=== PATIENT | female | born 1950 | race Hispanic/Latino ===

== ENCOUNTER 2017-11-21 16:51 | Inpatient (IN) | payer MEDICARE ==
--- NOTE | 2017-11-21 17:15 | ED PDOC ---
Arrival/HPI - General Chief Complaint: Weakness/Neurological Deficit Time Seen by Provider: 11/21/17 16:54 Historian: Patient, Other (PMD) - Critical Care Critical Care Minutes: 30 minutes Narrative Critical Care (Text): 11/21/17 20:48 severe anemia - History of Present Illness Narrative History of Present Illness (Text): 11/21/17 17:15 A 67 year old female, whose past medical history includes PUD with anemia requiring transfusion, sent into the emergency department by PMD for generalized fatigue and pale appearance. Patient reports while walking up the stairs to PMDs office she felt dizzy and weak. Patient notes lower extremity swelling for the past few days but denies any fever, chills, nausea, vomiting, abdominal pain, chest pain, shortness of breath, cough or any other complaints. PMD: Dr. Perla Time/Duration: Prior to Arrival Symptom Course: Unchanged Context: Other Past Medical History - Provider Review Nursing Documentation Reviewed: Yes - Past Medical History Past Medical History: Unable to Obtain - Cardiac Hx Cardiac Disorders: No - Pulmonary Hx Respiratory Disorders: No - Neurological Hx Neurological Disorder: No - HEENT Hx HEENT Disorder: No - Renal Hx Renal Disorder: No - Endocrine/Metabolic Hx Hypothyroidism: Yes - Hematological/Oncological Hx Blood Disorders: Yes (ADM TODAY 12/14/14) Hx Anemia: Yes (HEMATEMESIS 12/14/14) - Integumentary Hx Dermatological Disorder: No - Musculoskeletal/Rheumatological Hx Musculoskeletal Disorders: Yes Hx Back Pain: Yes - Gastrointestinal Hx Gastrointestinal Disorders: Yes Hx Gastrointestinal Ulcer: Yes Other/Comment: HEMATEMESIS 2014 - Genitourinary/Gynecological Hx Genitourinary Disorders: No - Psychiatric Hx Psychophysiologic Disorder: Yes Hx Anxiety: Yes Hx Depression: Yes Hx Substance Use: No Other/Comment: PT STATES "I WAS HURT" NOT ELOBORATING ON THIS - Surgical History Hx Appendectomy: Yes Other/Comment: 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 - Anesthesia Hx Anesthesia: Yes - Suicidal Assessment Feels Threatened In Home Enviroment: No Family/Social History - Physician Review Nursing Documentation Reviewed: Yes Family/Social History: No Known Family HX Smoking Status: Never Smoked Hx Alcohol Use: No Hx Substance Use: No Hx Substance Use Treatment: No Allergies/Home Meds Allergies/Adverse Reactions: Allergies Penicillins Allergy (Verified 11/21/17 17:14) RASH shellfish derived Allergy (Verified 11/21/17 17:14) RASH Home Medications: Home Meds Medication Instructions Recorded Confirmed Levothyroxine Sodium [Synthroid] 0 mg PO DAILY 12/14/14 12/14/14 Vitamin B Complex & Vitamin C 1 tab PO DAILY 12/14/14 12/14/14 [Strovite] busPIRone [Buspar] 0 mg PO DAILY 12/14/14 12/14/14 Review of Systems - Physician Review All systems were reviewed & negative as marked: Yes - Review of Systems Constitutional: Fatigue. absent: Fevers, Night Sweats Respiratory: absent: SOB, Cough Cardiovascular: absent: Chest Pain Gastrointestinal: absent: Abdominal Pain, Constipation, Diarrhea, Nausea, Vomiting, Hematochezia, Hematemesis Genitourinary Female: absent: Hematuria Skin: Other (pale) Neurological: Dizziness Physical Exam Vital Signs Reviewed: Yes Vital Signs Temp Pulse Resp BP Pulse Ox 11/21/17 17:07 98.0 F 94 H 20 121/62 100 Temperature: Afebrile Blood Pressure: Normal Pulse: Tachycardic Respiratory Rate: Normal Appearance: Positive for: Non-Toxic, Comfortable, Other (Pale appearing) Pain Distress: None Mental Status: Positive for: Alert and Oriented X 3 - Systems Exam Head: Present: Atraumatic, Normocephalic Pupils: Present: PERRL Extroacular Muscles: Present: EOMI Conjunctiva: Present: Normal Mouth: Present: Moist Mucous Membranes Neck: Present: Normal Range of Motion Respiratory/Chest: Present: Clear to Auscultation, Good Air Exchange. No: Respiratory Distress, Accessory Muscle Use Cardiovascular: Present: Normal S1, S2, Tachycardic. No: Murmurs Abdomen: Present: Normal Bowel Sounds. No: Tenderness, Distention, Peritoneal Signs Back: Present: Normal Inspection Upper Extremity: Present: Normal Inspection, Normal ROM, NORMAL PULSES. No: Cyanosis, Edema Lower Extremity: Present: NORMAL PULSES (DP intact), Normal ROM, Swelling (Left lower extremity swelling). No: CALF TENDERNESS Neurological: Present: GCS=15, CN II-XII Intact, Speech Normal Skin: Present: Warm, Dry, Pale. No: Rashes Psychiatric: Present: Alert, Oriented x 3, Normal Insight, Normal Concentration Medical Decision Making ED Course and Treatment: 11/21/17 17:15 Impression: A 67 year old female sent in for fatigue, pale appearance and bilateral lower extremity swelling. Plan: -- Duplex lower extremity ultrasound -- Chest xray -- EKG -- Labs -- Urine culture and Urinalysis -- IV fluids -- Reassess and disposition Progress Notes: 11/21/17 17:34 EKG shows NSR at 991bpm with old t wave inversions in V4-v6, but new t wave inversions in II,III, avf from prior ekg. Denies chest pain. 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 11/21/17 20:47 Labs show hypokalemia. Replacement ordered. Patient anemic to 3. Type and cross ordered for 2 units rbcs. Accepted to ICU 11/21/17 21:20 - Lab Interpretations Lab Results: 11/21/17 19:53 11/21/17 17:40 Lab Results 11/21/17 19:53: WBC 7.1, RBC 2.05 L, Hgb 3.4 L*, Hct 12.3 L*, MCV 60.0 L, MCH 16.6 L, MCHC 27.6 L, RDW 18.7 H, Plt Count 472 H, MPV 7.8, Gran % 83.5 H, Lymph % (Auto) 13.9 L, Burnett % (Auto) 2.4, Eos % (Auto) 0.1 L, Baso % (Auto) 0.1, Gran # 5.96, Lymph # 1.0 L, Burnett # 0.2, Eos # 0.0, Baso # 0.01 11/21/17 17:40: TSH 3rd Generation 0.16 L 11/21/17 17:40: Blood Type A POSITIVE, Antibody Screen Negative, Crossmatch See Detail, BBK History Checked Patient has bt 11/21/17 17:40: Sodium 127 L, Potassium 2.9 L*, Chloride 93 L, Carbon Dioxide 23 , Anion Gap 13, BUN 15, Creatinine 0.7, Est GFR ( Amer) > 60, Est GFR ( Non-Af Amer) > 60, Random Glucose 100, Calcium 8.5, Total Bilirubin 0.9, AST 44 H, ALT 24, Alkaline Phosphatase 115, Lactate Dehydrogenase 562, Total Creatine Kinase 168, Troponin I < 0.01, NT-Pro-B Natriuret Pep 2550 H, Total Protein 6.5 , Albumin 3.7, Globulin 2.8, Albumin/Globulin Ratio 1.3, Lipase 71 11/21/17 17:40: PT 15.3 H, INR 1.33 H, APTT 29.6 I have reviewed the lab results: Yes - RAD Interpretation Radiology Orders: 11/21/17 17:19 CHEST PORTABLE [RAD] Stat 11/21/17 17:20 DUPLEX LOWER EXTRM VEIN LEFT [US] Stat - Medication Orders Current Medication Orders: Discontinued Medications Sodium Chloride (Sodium Chloride 0.9%) 1,000 mls @ 999 mls/hr IV .Q1H1M STA Stop: 11/21/17 18:21 Last Admin: 11/21/17 17:49 Dose: 999 mls/hr eMAR Start Stop Document 11/21/17 17:49 RD (Rec: 11/21/17 17:49 RD [facility] [id number]) Intravenous Solution Start Date 11/21/17 Start Time 17:49 End Date 11/21/17 End time 18:49 Total Infusion Time 60 Potassium Chloride (Potassium Chloride 10 Meq/100 Ml) 10 meq in 100 mls @ 50 mls/hr IVPB ONCE ONE Stop: 11/21/17 20:18 Last Admin: 11/21/17 18:36 Dose: 50 mls/hr eMAR Start Stop Document 11/21/17 18:36 [facility] (Rec: 11/21/17 18:37 [facility] [id number]) Intravenous Solution Start Date 11/21/17 Start Time 18:36 End Date 11/21/17 End time 20:40 Total Infusion Time 124 Potassium Chloride (Potassium Chloride 10 Meq/100 Ml) 10 meq in 100 mls @ 50 mls/hr IVPB ONCE ONE Stop: 11/21/17 20:19 Last Admin: 11/21/17 19:41 Dose: 50 mls/hr eMAR Start Stop Document 11/21/17 19:41 JOL (Rec: 11/21/17 19:41 JOL [id number]) Intravenous Solution Start Date 11/21/17 Start Time 19:41 End Date 11/21/17 End time 20:41 Total Infusion Time 60 Potassium Chloride (K-Dur 20 Meq Er Tab) 40 meq PO STAT STA Stop: 11/21/17 18:20 Last Admin: 11/21/17 18:37 Dose: 40 meq - Scribe Statement The provider has reviewed the documentation as recorded by the Romeoibe Izabella Blackburn Provider Romeoibe Attestation: All medical record entries made by the Scribe were at my direction and personally dictated by me. I have reviewed the chart and agree that the record accurately reflects my personal performance of the history, physical exam, medical decision making, and the department course for this patient. I have also personally directed, reviewed, and agree with the discharge instructions and disposition. Disposition/Present on Arrival - Present on Arrival Any Indicators Present on Arrival: No History of DVT/PE: No History of Uncontrolled Diabetes: No Urinary Catheter: No History of Decub. Ulcer: No History Surgical Site Infection Following: None - Disposition Have Diagnosis and Disposition been Completed?: Yes Diagnosis: Hyponatremia, Hypokalemia, Anemia Disposition: HOSPITALIZED Disposition Time: 20:48 Patient Plan: Admission, ICU Patient Problems: Current Active Problems Problem Status Onset Anemia Acute Hyponatremia Acute Hypokalemia Acute Condition: CRITICAL Referrals: Timothy Perla, [Primary Care Provider] - Follow up with primary Forms: [employer] (Kiswahili)
[2017-11-21] MEDS ORDERED: Sodium Chloride 0.9% 1,000 ML IV STA (17:21)
[2017-11-21 18:17] LABS: ALB/GLOB RATIO 1.3 (1.1-1.8); ALBUMIN 3.7 g/dL (3.0-4.8); ALT/SGPT 24 U/L (7-56); AST/SGOT 44 U/L (14-36); B-TYPE NATRIURETIC PEPTIDE 2550 pg/mL (0-450); BLOOD UREA NITROGEN 15 mg/dL (7-21); CALCIUM 8.5 mg/dL (8.4-10.5); GFR AFRICAN-AMERICAN > 60; GFR NON-AFRICAN AMERICAN > 60; LIPASE 71 U/L (23-300); TROPONIN I < 0.01 ng/mL
[2017-11-21] MEDS ORDERED: Potassium Chloride 20 mEq ER Tab PO STA (18:19)
[2017-11-21 18:25] LABS: INR 1.33 (0.93-1.08); PARTIAL THROMBOPLASTIN TIME 29.6 Seconds (25.1-36.5); PROTHROMBIN TIME 15.3 SECONDS (9.4-12.5)
[2017-11-21 20:58] LABS: BASO # 0.01 K/mm3 (0.0-2.0); BASO % 0.1 % (0.0-3.0); EOS % 0.1 % (1.5-5.0); GRAN # 5.96 (1.4-6.5); GRAN % 83.5 % (50.0-68.0); LYMPH % 13.9 % (22.0-35.0); MEAN CORPUSCULAR HEMOGLOBIN 16.6 pg (25.0-35.0); MEAN CORPUSCULAR HGB CONC 27.6 g/dl (31.0-37.0); MEAN PLATELET VOLUME 7.8 fl (7.0-11.0); MONO # 0.2 (0.1-0.6); MONO % 2.4 % (1.0-6.0); RBC 2.05 10^6/uL (3.5-6.1); RED CELL DISTRIBUTION WIDTH 18.7 % (11.5-14.5); WHITE BLOOD COUNT 7.1 10^3/ul (4.5-11.0)
[2017-11-21 21:12] LABS: HEMOGLOBIN 3.4 g/dL (12.0-16.0)
--- NOTE | 2017-11-21 23:38 | US ---
PROCEDURE: Left lower extremity venous US HISTORY: Leg pain and swelling. Evaluate for DVT. PHYSICIAN(S): Eduardo Domingo MD. TECHNIQUE: Duplex sonography and color-flow Doppler with graded compression were used to evaluate the deep venous system of the left lower extremity. FINDINGS: The visualized deep venous system of the left lower extremity is sonographically normal and compressible. Normal wave forms and augmentation are seen. There is no sonographic evidence for deep venous thrombosis in the visualized segments of the left lower extremity. IMPRESSION: 1. No sonographic evidence for deep venous thrombosis in the visualized segments of the left lower extremity.
--- NOTE | 2017-11-22 00:22 | CP.PCM.CON ---
<KrishnaIsaac - Last Filed: 11/22/17 01:22> History of Present Illness - History of Present Illness History of Present Illness: Isaac Keller D.O. PGY-2, Critical Care Consultation Note CC: weakness and dizziness for multiple days 67 year old female with a PMH of previous episode of GI bleed, with LA grade C erosive esophagitis and esophageal ulcers requiring transfusions, who presented to her PMD's office for complaints of weakness and dizziness and was sent here from the office. Patient states that for multiple days she has been feeling weak and at times she gets dizzy, particularly when changing position. Patient denies any N/V/D/C, any melena, tenesmus, hematochezia, hematemesis, or any other complaints. Patient at times is a unreliable historian and states that she some type of surgery which prevents her from ever getting another GI bleed again. PMD: Dr. Perla PMH: as above PSH: reviewed SH: reviewed FH: reviewed Meds: reviewed Allergies: NKA Review of Systems - Constitutional Constitutional: Fatigue, Lethargy - EENT Eyes: absent: Blind Spots, Blurred Vision Ears: absent: Decreased Hearing, Ear Discharge Nose/Mouth/Throat: absent: Epistaxis, Nasal Congestion - Cardiovascular Cardiovascular: absent: Chest Pain, Diaphoresis - Respiratory Respiratory: absent: Cough, Dyspnea - Gastrointestinal Gastrointestinal: absent: Abdominal Pain, Nausea, Vomiting - Genitourinary Genitourinary: absent: Dysuria, Hematuria - Musculoskeletal Musculoskeletal: absent: Stiffness, Tingling - Integumentary Integumentary: absent: Pruritus, Rash - Neurological Neurological: Dizziness. absent: Tingling, Tremor Past Patient History - Past Social History Smoking Status: Never Smoked - CARDIAC Hx Cardiac Disorders: No - PULMONARY Hx Respiratory Disorders: No - NEUROLOGICAL Hx Neurological Disorder: No - HEENT Hx HEENT Problems: No - RENAL Hx Chronic Kidney Disease: No - ENDOCRINE/METABOLIC Hx Hypothyroidism: Yes - HEMATOLOGICAL/ONCOLOGICAL Hx Blood Disorders: Yes (ADM TODAY 12/14/14) Hx Anemia: Yes (HEMATEMESIS 12/14/14) - INTEGUMENTARY Hx Dermatological Problems: No - MUSCULOSKELETAL/RHEUMATOLOGICAL Hx Musculoskeletal Disorders: Yes Hx Back Pain: Yes - GASTROINTESTINAL Hx Gastrointestinal Disorders: Yes Other/Comment: HEMATEMESIS 2014 - GENITOURINARY/GYNECOLOGICAL Hx Genitourinary Disorders: No - PSYCHIATRIC Hx Psychophysiologic Disorder: Yes Hx Anxiety: Yes Hx Depression: Yes Hx Substance Use: No Other/Comment: PT STATES "I WAS HURT" NOT ELOBORATING ON THIS - SURGICAL HISTORY Hx Appendectomy: Yes Other/Comment: 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 - ANESTHESIA Hx Anesthesia: Yes Meds Allergies/Adverse Reactions: Allergies Allergy/AdvReac Type Severity Reaction Status Date / Time Penicillins Allergy RASH Verified 11/21/17 17:14 shellfish derived Allergy RASH Verified 11/21/17 17:14 MYCINS Allergy RASH Uncoded 11/22/17 08:51 [employer] AdvReac DIARRHEA Uncoded 11/22/17 08:51 - Medications Medications: Current Medications Pantoprazole Sodium (Protonix 40mg Ivpb) 40 mg in 100 mls @ 20 mls/hr IVPB .Q5H DAWOOD Physical Exam - Constitutional Appears: Cachectic, Chronically Ill - Head Exam Head Exam: ATRAUMATIC, NORMOCEPHALIC - Eye Exam Eye Exam: EOMI, PERRL - ENT Exam ENT Exam: Mucous Membranes Dry, Mucous Membranes Moist - Neck Exam Neck exam: Positive for: Normal Inspection - Respiratory Exam Respiratory Exam: Clear to Auscultation Bilateral. absent: Rhonchi, Wheezes - Cardiovascular Exam Cardiovascular Exam: RRR, +S1, +S2. absent: Gallop, Rubs - GI/Abdominal Exam GI & Abdominal Exam: Normal Bowel Sounds, Soft. absent: Distended, Tenderness - Extremities Exam Extremities exam: Negative for: calf tenderness, pedal edema - Neurological Exam Neurological exam: Alert, Oriented x3 - Psychiatric Exam Psychiatric exam: Normal Affect, Normal Mood - Skin Skin Exam: Dry, Warm Results - Vital Signs Recent Vital Signs: Last Vital Signs Temp 97.8 F 11/21/17 23:04 Pulse 101 H 11/21/17 23:14 Resp 15 11/21/17 23:04 BP 115/91 H 11/21/17 23:04 Pulse Ox 100 11/21/17 19:00 - Labs Result Diagrams: 11/21/17 19:53 11/21/17 17:40 Assessment & Plan - Assessment and Plan (Free Text) Assessment: 67 year old female with a PMH of previous episode of GI bleed, with LA grade C erosive esophagitis and esophageal ulcers requiring transfusions, who presented to her PMD's office for complaints of weakness and dizziness and was sent here from the office and was found to have severe anemia with a Hgb of 3.4 Plan: Neurologic AAOx4, nonfocal, no deficits, will monitor Cardiovascular BNP elevated, cardio consulted, nonspecific ST-T wave changes on EKG, asymptomatic, hemodynamically stable, maintain MAP >65 Pulmonologic PRN O2 2L NC, maintain O2Sat > 92%, no acute issues at this time GI GI consulted, likely source of bleeding given history, chronic given patient currently stable despite very low Hgb, discussed with GI team, on PPI gtt, NPO Nephro/Electrolytes Hypokalemia and hyponatremia, did receive a total of 60mEqs of K+ in the ER, repeat after gets 3U of PRBCs ID No acute signs of infection, afebrile, no leukocytosis, continue to monitor Heme/Onc GI likely source of severe anemia, will given 3U PRBCs and recheck CBC, hemodynamically stable DVT ppx: SCDs Patient was seen and examined and case was discussed at length with attending physician. - Date & Time Date: 11/22/17 Time: 00:20 <Isaac Anderson MD - Last Filed: 11/23/17 10:47> Meds - Medications Medications: Current Medications Sodium Chloride (Sodium Chloride 0.9%) 1,000 mls @ 60 mls/hr IV .[id number] [facility] Last Admin: 11/23/17 06:52 Dose: 60 mls/hr Potassium Chloride (Potassium Chloride 10 Meq/100 Ml) 10 meq in 100 mls @ 50 mls/hr IVPB Q2H [facility] Stop: 11/23/17 12:44 Last Admin: 11/23/17 10:04 Dose: 50 mls/hr Pantoprazole Sodium (Protonix Ec Tab) 40 mg PO 0600,1600 [facility] Last Admin: 11/23/17 06:38 Dose: 40 mg Sucralfate (Carafate Oral Susp) 1 gm PO 0600,1600 [facility] Last Admin: 11/23/17 06:51 Dose: 1 gm Results - Vital Signs Recent Vital Signs: Last Vital Signs Temp 98.4 F 11/22/17 17:45 Pulse 79 11/23/17 00:40 Resp 22 11/23/17 00:40 BP 98/60 L 11/23/17 00:00 Pulse Ox 97 11/23/17 00:40 - Labs Result Diagrams: 11/23/17 07:10 11/23/17 07:10 Labs: Laboratory Results - last 24 hr 11/22/17 11/22/17 11/22/17 13:13 19:35 19:35 WBC 8.1 RBC 4.57 Hgb 11.8 L D Hct 34.8 L MCV 76.1 L MCH 25.8 MCHC 33.9 RDW 20.3 H Plt Count 282 MPV 8.9 Sodium 133 Potassium 3.0 L Chloride 98 Carbon Dioxide 22 Anion Gap 16 BUN 12 Creatinine 0.6 L Est GFR ( Amer) > 60 Est GFR (Non-Af Amer) > 60 Random Glucose 83 Calcium 7.6 L Phosphorus 1.9 L Magnesium 1.6 L Total Bilirubin AST ALT Alkaline Phosphatase Total Protein Albumin Globulin Albumin/Globulin Ratio Urine Color Yellow Urine Appearance Clear Urine pH 7.0 Ur Specific [place] 1.010 Urine Protein Negative Urine Glucose (UA) Negative Urine Ketones 15 H Urine Blood Small H Urine Nitrate Negative Urine Bilirubin Negative Urine Urobilinogen 1.0 H Ur Leukocyte Esterase Trace H Urine RBC 2 - 5 Urine WBC 1 - 3 Ur Epithelial Cells 1 - 3 11/23/17 11/23/17 11/23/17 06:30 07:10 07:10 WBC 5.2 D RBC 3.84 Hgb 9.8 L D Hct 29.0 L MCV 75.5 L MCH 25.5 MCHC 33.8 RDW 20.5 H Plt Count 238 MPV 8.5 Sodium 130 L Potassium 3.3 L Chloride 102 Carbon Dioxide 19 L Anion Gap 13 BUN 8 Creatinine 0.5 L Est GFR ( Amer) > 60 Est GFR (Non-Af Amer) > 60 Random Glucose 78 Calcium 6.9 L* Phosphorus 3.8 Magnesium 2.4 H Total Bilirubin 1.2 AST 26 ALT 38 Alkaline Phosphatase 109 Total Protein 5.0 L Albumin 2.7 L Globulin 2.3 Albumin/Globulin Ratio 1.2 Urine Color Urine Appearance Urine pH Ur Specific [place] Urine Protein Urine Glucose (UA) Urine Ketones Urine Blood Urine Nitrate Urine Bilirubin Urine Urobilinogen Ur Leukocyte Esterase Urine RBC Urine WBC Ur Epithelial Cells Attending/Attestation - Attestation I have personally seen and examined this patient.: Yes I have fully participated in the care of the patient.: Yes I have reviewed all pertinent clinical information: Yes Notes (Text): -I agree with the above ICU consult note completed by the resident physician with the following additions and/or changes: -The patient is a 67 year old woman with a history of LA grade C erosive esophagitis and esophageal ulcers who is being admitted to the ICU with severe symptomatic microcytic anemia (Hgb=3.4). She will be started on Protonix drip, kept NPO and placed on aggressive IVFs. GI consult has been placed. 4units of PRBCs will be transfused overnight.
[2017-11-22] MEDS: Pantoprazole 40mg/100ml IVPB 40 MG/100 ML BAG IVPB SCH ×2 (00:46→07:10)
--- NOTE | 2017-11-22 02:08 | HP ---
HISTORY OF PRESENT ILLNESS: I know Dione well. She was in my office this afternoon. I sent her to the Emergency Room. She is a 67-year-old female who was extremely fatigued, exhausted, could not get rest, family took her to my office, there she had to be carried up the stairs. She could stand, either hold or to pivot her into a chair, I called 911, brought her to the Emergency Room. She is weak and lethargic and fatigued and pale. She has had blood transfusions in the past. Also, the left leg is extremely swollen with a patch at the right leg. I am curious about DVT versus congestive heart failure. She is very weak, has not been eating. Not doing well. PAST MEDICAL HISTORY: Includes intestinal ulcers, noncompliant, extreme anxiety, hypothyroidism. She has thrown up blood in the past. She has back pain, gastrointestinal ulcers, anxiety, depression. PAST SURGICAL HISTORY: She did have a football size stomach tumor and an appendectomy surgeries in the past. FAMILY HISTORY: No family history. SOCIAL HISTORY: No smoking. No drinking. No drugs. ALLERGIES: TO PENICILLIN AND SHELLFISH. MEDICATIONS: She is on levothyroxine, vitamin B12 and BuSpar. REVIEW OF SYSTEMS: No acute vision changes or hearing changes. No sore throat. No chest pain or palpitations. She is little short of breath. No cough. No abdominal pain, nausea, vomiting, constipation. Her left leg is weak. She is very weak and painful all over entire body. She is very pale. She is dizzy. Not feeling well. PHYSICAL EXAMINATION: GENERAL: She is very pale, looking very weak and thin, may be 60 pounds soaking wet, not comfortable. She is alert and oriented x3, very anxious. VITAL SIGNS: She has 98 temperature, 94 pulse, 20 respiratory rate, 121/63 blood pressure and 100% O2 saturation on room air. HEENT: Head atraumatic and normocephalic. Extraocular muscles are intact. Pupils reactive to light and accommodation. Throat is moist. NECK: Supple. HEART: Regular rate, normal S1 and S2. LUNGS: Decreased breath sounds. Clear to auscultation. ABDOMEN: Soft and nontender. Positive bowel sounds. No guarding. No rebound. No CVA tenderness. EXTREMITIES: Left leg has +2/4 pitting edema. The right leg is okay. NEUROLOGIC: GCS is 15. Cranial nerves II through XII grossly intact. Speech is normal. The left inside of ankle has a small grade I ulcer. Alert and oriented x3. LYMPHATICS: Thyroid is midline. No palpable lymphadenopathy. SKIN: Warm and dry. LABORATORY DATA: She has a chest x-ray ordered. She has a left leg venous Doppler ordered. She had multiple labs done. She had 1.33 INR. She has 127 sodium, potassium is 2.9, she has replaced potassium, BUN is 15, creatinine 0.7, GFR greater than 60, sugars 100 and calcium is 8.5. Total bili is 0.9. AST is 44, ALT is 24, alk phos is 115, lactate dehydrogenase is 562. Total creatine kinase is 168. Troponin I is less than 0.01. BNP is very high at 2,550. Total protein is 6.5. Lipase is 71. ASSESSMENT AND PLAN: Awaiting for CBC to see if she is not septic or if she is not anemic. At this time, she would be put in the hospital depending on what the CBC shows, we will start her on Lasix. Give her potassium replacement. Consult Cardiology. We ordered physical therapy. She is very weak and frail. She is here for at least congestive heart failure. We will see what else we find with rest of the tests coming back. I am curious to know about the venous Dopplers of the swollen legs. Congestive heart failure, rule out deep venous thrombosis, rule out sepsis, rule out anemia. Timothy Perla DO
[2017-11-22 03:18] VITALS: BMI 19.3
[2017-11-22] MEDS ORDERED: Influenza Vaccine 60 mcg/0.5 mL SYR (4YR UP) IM ONE (03:19)
[2017-11-22] MEDS ORDERED: DiphenhydrAMINE 50 mg/ml Inj IVP STA (03:32)
[2017-11-22] MEDS: Sodium Chloride 0.9% 1,000 ML IV SCH ×2 (07:11→18:28)
--- NOTE | 2017-11-22 07:13 | CP.PCM.CON ---
<Lori Arias - Last Filed: 11/22/17 09:31> History of Present Illness - History of Present Illness History of Present Illness: PGY2 Medicine Resident Consult note for GI Please note, patient is a poor historian 67yo female PMHx PUD with anemia requiring transfusion, anxiety, and hypothyroidism sent to ED by PMD Dr. Perla for generalized fatigue and pale appearance. Patient reports while walking up the stairs to PMDs office she felt dizzy, weak and lightheaded and was thus sent in. She stated that for multiple days she has been feeling weak and at times she gets dizzy, particularly when changing position. She admitted to some chills and a nonproductive cough. Patient stated that when she drinks too much cold water she has diarrhea and last episode was 2 days ago. She also stated that her last meal was 2 days ago when she ate bread. Patient denies any recent abdominal pain, nausea, vomiting, rectal bleeding, melena, weight loss, tenesmus, NSAID use, ETOH abuse, or OTC medication use. ROS: 12 point review of systems negative except as indicated in HPI PMHx: anxiety, hypothyroidism PSurgHx: appendectomy 1990 and ovarian cyst removal 1991 PProcedures: EGD 12/2014: LA grade C erosive esophagitis and esophageal ulcers- distal biopsy showed gastric epithelium with ulceration and intestinal metaplasia with reactive epithelial changes, no squamous epithelium identified, no dysplasia identified, no viral inclusions identified, no fungal organisms; proximal biopsy showed no significant histopathologic findings. Family Hx: unknown Social Hx: denies EtOH, tobacco use, and drug use Meds: Nexium and Buspar ALL: PCN, shellfish PMD: Dr. Perla GI: None Surgeon: Dr. Stephenson Review of Systems - Review of Systems All systems: reviewed and no additional remarkable complaints except - Constitutional Constitutional: As Per HPI, Chills. absent: Fever - EENT Ears: As Per HPI, Disequilibrium, Dizziness Nose/Mouth/Throat: As Per HPI. absent: Sore Throat - Cardiovascular Cardiovascular: As Per HPI. absent: Chest Pain, Dyspnea - Respiratory Respiratory: As Per HPI. absent: Cough, Dyspnea - Gastrointestinal Gastrointestinal: As Per HPI, Change in Stool Character, Loose Stools. absent: Abdominal Pain, Coffee Ground Emesis, Constipation, Cramping, Diarrhea, Dyspepsia, Dysphagia, Heartburn, Hematemesis, Hematochezia, Melena, Nausea, Vomiting - Genitourinary Genitourinary: As Per HPI. absent: Dysuria, Hematuria - Musculoskeletal Musculoskeletal: As Per HPI. absent: Back Pain - Integumentary Integumentary: As Per HPI. absent: Dry Skin - Neurological Neurological: As Per HPI, Disequilibrium, Dizziness, Weakness. absent: Headaches - Psychiatric Psychiatric: As Per HPI, Anxiety Past Patient History - Past Social History Smoking Status: Never Smoked - CARDIAC Hx Cardiac Disorders: No - PULMONARY Hx Respiratory Disorders: No - NEUROLOGICAL Hx Neurological Disorder: No - HEENT Hx HEENT Problems: No - RENAL Hx Chronic Kidney Disease: No - ENDOCRINE/METABOLIC Hx Hypothyroidism: Yes - HEMATOLOGICAL/ONCOLOGICAL Hx Blood Disorders: Yes (ADM TODAY 12/14/14) Hx Anemia: Yes (HEMATEMESIS 12/14/14) - INTEGUMENTARY Hx Dermatological Problems: No - MUSCULOSKELETAL/RHEUMATOLOGICAL Hx Musculoskeletal Disorders: Yes Hx Back Pain: Yes - GASTROINTESTINAL Hx Gastrointestinal Disorders: Yes Other/Comment: HEMATEMESIS 2014 - GENITOURINARY/GYNECOLOGICAL Hx Genitourinary Disorders: No - PSYCHIATRIC Hx Psychophysiologic Disorder: Yes Hx Anxiety: Yes Hx Depression: Yes Hx Substance Use: No Other/Comment: PT STATES "I WAS HURT" NOT ELOBORATING ON THIS - SURGICAL HISTORY Hx Appendectomy: Yes Other/Comment: 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 - ANESTHESIA Hx Anesthesia: Yes Meds Allergies/Adverse Reactions: Allergies Allergy/AdvReac Type Severity Reaction Status Date / Time Penicillins Allergy RASH Verified 11/21/17 17:14 shellfish derived Allergy RASH Verified 11/21/17 17:14 MYCINS Allergy RASH Uncoded 11/22/17 08:51 DAIRY [employer]ODUCTS AdvReac DIARRHEA Uncoded 11/22/17 08:51 - Medications Medications: Current Medications Pantoprazole Sodium (Protonix 40mg Ivpb) 40 mg in 100 mls @ 20 mls/hr IVPB .Q5H [facility] Last Admin: 11/22/17 07:10 Dose: 20 mls/hr Sodium Chloride (Sodium Chloride 0.9%) 1,000 mls @ 125 mls/hr IV .Q8H [facility] Last Admin: 11/22/17 07:11 Dose: 125 mls/hr Physical Exam - Constitutional Appears: Unkempt, Older Than Stated Age, Chronically Ill - Head Exam Head Exam: ATRAUMATIC, NORMAL INSPECTION, NORMOCEPHALIC - Eye Exam Eye Exam: Normal appearance. absent: Conjunctival injection, Scleral icterus - ENT Exam ENT Exam: Mucous Membranes Moist - Neck Exam Neck exam: Positive for: Normal Inspection - Respiratory Exam Respiratory Exam: Clear to Auscultation Bilateral, NORMAL BREATHING PATTERN. absent: Accessory Muscle Use, Rales, Rhonchi, Wheezes, Respiratory Distress - Cardiovascular Exam Cardiovascular Exam: REGULAR RHYTHM, RRR, +S1, +S2. absent: Systolic Murmur - GI/Abdominal Exam GI & Abdominal Exam: Normal Bowel Sounds, Soft. absent: Distended, Firm, Guarding, Hernia, Rigid, Tenderness - Rectal Exam Rectal Exam: Deferred - Extremities Exam Extremities exam: Positive for: normal inspection. Negative for: calf tenderness, pedal edema - Neurological Exam Neurological exam: Alert, Oriented x3 - Psychiatric Exam Psychiatric exam: Anxious, Normal Affect - Skin Skin Exam: Dry, Intact, Pallor, Pallor Results - Vital Signs Recent Vital Signs: Last Vital Signs Temp 98.5 F 11/22/17 05:18 Pulse 117 H 11/22/17 05:18 Resp 14 11/22/17 05:18 BP 100/72 11/22/17 05:18 Pulse Ox 100 11/21/17 19:00 - Labs Result Diagrams: 11/22/17 08:30 11/22/17 08:30 Assessment & Plan - Assessment and Plan (Free Text) Assessment: 67yo female PMHx PUD with anemia requiring transfusion, anxiety, and hypothyroidism sent to ED by PMD Dr. Perla for generalized fatigue and pale appearance 1. Acute symptomatic anemia 2. Hx of PUD 3. Hx of anxiety 4. Hx of hypothyroidism Plan: -Patient admitted to ICU with Hgb 3.4 --> 7.3 s/p 2U PRBC -EGD 11/22/17: Z line irregular, 25cm from incisors [biopsied], LA Grade B reflux esophagitis, 4cm hiatus hernia, Gastric ulcer with a clean ulcer base [ Ponce Class III- biopsied], Gastritis [biopsied], few gastric polyps [ resected and retrieved], multiple duodenal ulcers -f/u path results of biopsies -monitor CBC and for overt bleed and BP -EGD 12/2014: LA grade C erosive esophagitis and esophageal ulcers- distal biopsy showed gastric epithelium with ulceration and intestinal metaplasia with reactive epithelial changes, no squamous epithelium identified, no dysplasia identified, no viral inclusions identified, no fungal organisms; proximal biopsy showed no significant histopathologic findings. -Patient refusing colonoscopy -Protonix 40mg po bid -Sucralfate 1gm po bid oral susp -Full Liquid Diet -Continue management as per ICU team GI will continue to follow Discussed with Dr. Amaury Arias PGY2 <Nino Rebolledo - Last Filed: 11/22/17 11:27> Meds - Medications Medications: Current Medications Sodium Chloride (Sodium Chloride 0.9%) 1,000 mls @ 125 mls/hr IV .Q8H [facility] Last Admin: 11/22/17 07:11 Dose: 125 mls/hr Pantoprazole Sodium (Protonix Ec Tab) 40 mg PO 0600,1600 [facility] Sucralfate (Carafate Oral Susp) 1 gm PO 0600,1600 [facility] Results - Vital Signs Recent Vital Signs: Last Vital Signs Temp 98.3 F 11/22/17 11:01 Pulse 90 11/22/17 11:01 Resp 18 11/22/17 11:01 BP 105/61 11/22/17 11:01 Pulse Ox 99 11/22/17 08:47 - Labs Result Diagrams: 11/22/17 08:30 11/22/17 08:30 Labs: Laboratory Results - last 24 hr 11/22/17 11/22/17 08:30 08:30 WBC 7.4 RBC 2.97 L Hgb 7.3 L D Hct 22.2 L MCV 74.7 L D MCH 24.6 L MCHC 32.9 RDW 24.2 H Plt Count 318 MPV 8.2 Sodium 133 Potassium 3.7 Chloride 104 Carbon Dioxide 20 L Anion Gap 13 BUN 15 Creatinine 0.6 L Est GFR ( Amer) > 60 Est GFR (Non-Af Amer) > 60 Random Glucose 79 Calcium 7.7 L Total Bilirubin 1.9 H AST 60 H D ALT 37 Alkaline Phosphatase 110 Total Protein 5.5 L Albumin 3.2 Globulin 2.4 Albumin/Globulin Ratio 1.3 Attending/Attestation - Attestation I have personally seen and examined this patient.: Yes I have fully participated in the care of the patient.: Yes I have reviewed all pertinent clinical information: Yes Notes (Text): 11/22/17 11:14 I have seen and examined patient with medical physiologist. Agree with above documentation with the following additions. In brief, this is a 67 year old female with history of anxiety, hypothyroidism who presents to hospital with complaint of progressive fatigue and lightheadedness for the past 2 days. She describes feeling dizzy while walking up stairs and performing activities of daily living. She denies abdominal pain, nausea, vomiting, diarrhea, fever/ chills, weight loss, rectal bleeding, melena, or change in bowel habits. She denies NSAID use or OTC herbal medication. She had an EGD in 2014 which showed esophageal ulcer and esophagitis. She claims to have had a colonoscopy over 15 years ago which was normal according to patient. She is seen currently in critical care unit, has received two units of PRBC transfusion and notes improvement in her symptoms. Review of vitals from today shows tachycardia. Family history: reviewed, patient unaware of any history of GI cancers Additional physical examination: Abdomen: no palpable hepato/splenomegaly Rectal: normal anal sphincter tone, no palpable lesions, hard brown stool in rectal vault Anxiety Hypothyroidism Symptomatic microcytic anemia, severe posing threat to patient life requiring intensive care unit management - NPO - Continue with PPI infusion therapy - Continue to monitor H/H s/p PRBC transfusion therapy - Will plan for urgent EGD today for further evaluation of symptomatic anemia, rule out underlying malignancy or peptic ulcer disease - Patient would also benefit from colonoscopy evaluation given similar clinical presentation 3 years ago, however she is adamantly refusing this procedure. I have discussed risks of deferring procedure which she understands and is willing to accept. Further management pending endoscopic evaluation and patient clinical course.
[2017-11-22 08:34] LABS: MEAN CELL VOLUME 74.7 fl (80.0-105.0); MEAN CORPUSCULAR HEMOGLOBIN 24.6 pg (25.0-35.0); MEAN CORPUSCULAR HGB CONC 32.9 g/dl (31.0-37.0); MEAN PLATELET VOLUME 8.2 fl (7.0-11.0); RBC 2.97 10^6/uL (3.5-6.1); RED CELL DISTRIBUTION WIDTH 24.2 % (11.5-14.5); WHITE BLOOD COUNT 7.4 10^3/ul (4.5-11.0)
[2017-11-22 08:38] LABS: HEMOGLOBIN 7.3 g/dL (12.0-16.0)
[2017-11-22 08:51] LABS: ALB/GLOB RATIO 1.3 (1.1-1.8); ALBUMIN 3.2 g/dL (3.0-4.8); ALT/SGPT 37 U/L (7-56); AST/SGOT 60 U/L (14-36); BLOOD UREA NITROGEN 15 mg/dL (7-21); CALCIUM 7.7 mg/dL (8.4-10.5); GFR AFRICAN-AMERICAN > 60; GFR NON-AFRICAN AMERICAN > 60
[2017-11-22] MEDS ORDERED: Lidocaine 2% Inj (20ml) ONE (08:56)
[2017-11-22] MEDS ORDERED: Etomidate 20 mg/10ml Inj IV ONE (08:57)
[2017-11-22] MEDS ORDERED: Propofol 10 mg/ml Inj (20 ML) ONE (08:57)
--- NOTE | 2017-11-22 09:49 | RAD ---
HISTORY: pale, fatigued COMPARISON: 12/14/2014 FINDINGS: LUNGS: No active pulmonary disease. PLEURA: No significant pleural effusion identified, no pneumothorax apparent. CARDIOVASCULAR: Normal. OSSEOUS STRUCTURES: No significant abnormalities. VISUALIZED UPPER ABDOMEN: Normal. OTHER FINDINGS: None. IMPRESSION: No active disease.
--- NOTE | 2017-11-22 12:37 | PN ---
DATE: SUBJECTIVE: I had seen her in the Intensive Care Unit this morning and admitted her last night. Finally, the hemoglobin came back and it was 3.4. She was given 2 units, and I gave her 2 more units today, it is up to 7.3 hemoglobin, 7.4 white count, and 318 platelets. She has 133 sodium and potassium went from 2.9 to 3.7, which is also good. She has a BUN 15, creatinine 0.6, GFR is greater than 60, sugar 79, and calcium 7.7. Total bilirubin is 1.9, AST is 60, ALT is 37, alkaline phosphatase 110, and total protein is 5.5. PHYSICAL EXAMINATION: GENERAL: She is alert in bed. She is little more comfortable, little more energy, not as nervous as she was when she came in. VITAL SIGNS: She has a 97.4 temperature, pulse is 111, I might get some metoprolol involved, it has been 118 and 117, she has also 130/78 blood pressure, 24 respiratory rate, and 99% O2 saturation on 3 L. HEENT: Head is atraumatic, normocephalic. HEART: Regular rate. LUNGS: Decreased breath sounds, but clear. ABDOMEN: Soft and nontender. Positive bowel sounds. EXTREMITIES: No edema. She has much better color after the transfusion. She is currently on Carafate, Protonix, and IV fluids. She had a procedure with endoscopy with GI and they found a large ulcer, nonbleeding at this time. She will need to stay on the Carafate and Protonix. No aspirin products, of course. We will transfuse 2 more units, go to physical therapy, out of bed to chair, she might need to go to TCU versus subacute rehab depending on what physical therapy has to tell me. I will continue with aggressive treatment and care. Dione Madera came in severely anemic, weak, low potassium, and CHF. Timothy Perla DO
[2017-11-22 13:21] LABS: URINE BILIRUBIN NEGATIVE (NEGATIVE); URINE BLOOD SMALL (NEGATIVE); URINE GLUCOSE (UA) NEGATIVE (NEGATIVE); URINE LEUKOCYTE ESTERASE TRACE Leu/uL (NEGATIVE); URINE NITRATE NEGATIVE (NEGATIVE); URINE PROTEIN NEGATIVE mg/dL (<30 mg/dL)
[2017-11-22 13:27] LABS: URINE APPEARANCE CLEAR (CLEAR); URINE COLOR YELLOW (YELLOW)
[2017-11-22] MEDS: Sucralfate 1 gm/10 ml Oral Susp UD PO SCH (17:00)
[2017-11-22] MEDS: Pantoprazole 40 mg EC Tab PO SCH (17:00)
[2017-11-22 19:38] LABS: HEMOGLOBIN 11.8 g/dL (12.0-16.0); MEAN CELL VOLUME 76.1 fl (80.0-105.0); MEAN CORPUSCULAR HEMOGLOBIN 25.8 pg (25.0-35.0); MEAN CORPUSCULAR HGB CONC 33.9 g/dl (31.0-37.0); MEAN PLATELET VOLUME 8.9 fl (7.0-11.0); RBC 4.57 10^6/uL (3.5-6.1); RED CELL DISTRIBUTION WIDTH 20.3 % (11.5-14.5); WHITE BLOOD COUNT 8.1 10^3/ul (4.5-11.0)
[2017-11-22 19:49] LABS: BLOOD UREA NITROGEN 12 mg/dL (7-21); CALCIUM 7.6 mg/dL (8.4-10.5); GFR AFRICAN-AMERICAN > 60; GFR NON-AFRICAN AMERICAN > 60; MAGNESIUM 1.6 mg/dL (1.7-2.2)
[2017-11-22] MEDS ORDERED: Potassium Phosphate 30 MMOLE in Sodium Chloride 0.9% 250 ML IVPB ONE (20:05)
[2017-11-22] MEDS ORDERED: Magnesium Sulfate 2 GM in Sodium Chloride 0.9% 100 ML IVPB ONE (20:06)
--- NOTE | 2017-11-22 20:38 | CARD ---
APPROVED REPORT EKG Measurement Heart [id number] <Conclusion> Sinus rhythm with short RI ST & T wave abnormality, consider inferior ischemia ST & T wave abnormality, consider anterolateral ischemia Abnormal ECG
--- NOTE | 2017-11-23 01:24 | CON ---
CARDIOLOGY CONSULTATION DATE: Covering for Dr. Eduardo Root. REASON FOR CONSULTATION: Abnormal EKG with evidence of anterolateral ischemia. HISTORY OF PRESENT ILLNESS: The patient is a 67-year-old female who has history of peptic ulcer disease and anemia requiring blood transfusion in the past. She presented because of weakness and dizziness and was found to be severely anemic. Packed RBC transfusion was initiated and she is currently receiving the fourth unit of packed RBC. The patient denies any recent hematemesis or melena at this time. The patient is unaware of any prior cardiac history and denies retrosternal chest pain. The patient is not on any aspirin or any other antiplatelet or non-steroidal antiinflammatory drugs or steroids according to her. SOCIAL HISTORY: The patient is nonsmoker. HOME MEDICATIONS: The patient's home medications included Synthroid, vitamin B complex and BuSpar. CURRENT HOSPITAL MEDICATIONS: Carafate oral suspension 1 g twice a day, Protonix 40 mg p.o. twice a day and normal saline at 125 mL an hour. REVIEW OF SYSTEMS: No fever or chills. No syncope or fall. No retrosternal chest pain. PHYSICAL EXAMINATION GENERAL: The patient is an elderly female who does not appear to be in any acute distress. VITAL SIGNS: Blood pressure 140/75, heart rate 85, temperature 98.3 and respirations 16. HEENT: Pale conjunctivae. CHEST: Clear. HEART: S1 and S2 regular. ABDOMEN: Soft. EXTREMITIES: Show no edema. LABORATORY DATA: Hemoglobin and hematocrit on admission was 3.4 and 12.3, this morning are 7.3 and 22.2 respectively, white count today and platelet count are within normal limits. INR is 1.33. PTT 29.6. SMA-7, sodium 133, potassium 3.7, chloride 104, CO2 of 20, glucose 79, BUN 15 and creatinine 0.6. ProBNP 2550. EKG revealed sinus rhythm with short ME interval, ST-T wave abnormality consider of inferior and anterolateral ischemia, prolonged QT interval. ASSESSMENT: 1. Abnormal electrocardiogram with evidence of anterior and inferolateral ischemia as well as prolonged QT interval. 2. Severe anemia. 3. Hypokalemia. RECOMMENDATIONS: Continue current packed RBC transfusion and monitor for any signs of volume overload. Continue current therapy, Protonix. Optimize potassium replacement. The patient did receive 40 mEq of K-Dur today and I recommend future IV replacement of potassium instead of oral replacement. Obtain a bedside echocardiogram. No antiplatelet are justified at this time. Garland Sim MD
--- NOTE | 2017-11-23 02:53 | CON ---
DATE: 11/22/2017 HISTORY OF PRESENT ILLNESS: The patient is a 67-year-old lady with history of anemia, anxiety, and hypothyroidism, who was sent to ER by Dr. Perla for generalized fatigue and pale appearance. She was found to have very low hemoglobin in the 3s. She states that she has been feeling weak, lightheaded, and dizzy. Some chills and nonproductive cough; however, she reports that this is not her main complaints. Denies recent abdominal pain, nausea or vomiting. She denies melena, rectal bleeding, weight loss or tenesmus. No alcohol or illicit drug abuse. PAST MEDICAL HISTORY: Hypothyroidism and anxiety. PAST SURGICAL HISTORY: Appendectomy and ovarian cyst removal in 1991. The patient had EGD in 2014, which showed grade III erosive esophagitis and esophageal ulcers. Distal biopsy showed gastric epithelium with ulceration and intestinal metaplasia with reactive epithelial changes. No squamous epithelium identified. No dysplasia identified. No viral inclusions identified. No fungal organisms. Proximal biopsy showed no significant histopathologic findings. FAMILY HISTORY: Noncontributory. MEDICATIONS: Nexium and BuSpar. ALLERGIES: PENICILLIN AND SHELLFISH. REVIEW OF SYSTEM: Review of 12-organ system other than mentioned in the history of present illness is negative. PHYSICAL EXAMINATION: VITAL SIGNS: Temperature 98.4, heart rate 91, blood pressure 140/75, and respiratory rate 16. HEENT: Head and neck atraumatic. LUNGS: Clear to auscultation bilaterally. HEART: Regular rate and rhythm. S1 and S2 normal. ABDOMEN: Soft, nontender, and nondistended. MUSCULOSKELETAL: No C/C/E. NEUROLOGIC: The patient moves all extremities spontaneously. SKIN: Moist. PSYCH: The patient is alert and oriented x3. LABORATORY DATA: WBC 7.4, hemoglobin 7.3 up from 3.4, and platelet count 318. Sodium 133, potassium 3.7, chloride 104, carbon dioxide 20, BUN 15, creatinine 0.6, glucose 79, AST 60, ALT 37, and bilirubin 1.9. INR 1.33. Endoscopy showed one greater gastric ulcer with clean ulcer base that was found in the cardia within hernia. The lesion was 8 mm in largest dimension, biopsies were taken with cold forceps for histology. Results are pending. Diffuse mild inflammation characterized by erythema was found in the gastric body. Biopsies were taken with cold forceps for Helicobacter pylori testing. Some pedunculated and sessile polyps 6-10 mm were found in the gastric body, resection and retrieval were complete. ASSESSMENT AND PLAN: This is a 67-year-old lady who presented with severe anemia status post several PRBCs transfusion and endoscopy. She is hemodynamically and respiratory arrington stable. Able to protect her airways. Alert and oriented x3. Endoscopy did not reveal any bleeding ulcer. She was cleared for clear liquid diet by GI Service. The patient is continued to be on Protonix. We will continue to maintain euvolemia, euglycemia, normothermia, and oxygen saturation more than 90%. Serial CBC. Okay to downgrade to telemetry. ccm time 40 min Lowell Richards MD MTDD
[2017-11-23] MEDS: Sodium Chloride 0.9% 1,000 ML IV SCH ×3 (05:01→18:44)
[2017-11-23] MEDS ORDERED: Potassium Chloride 20 mEq ER Tab PO ONE (06:34)
[2017-11-23] MEDS: Pantoprazole 40 mg EC Tab PO SCH ×2 (06:38→17:11)
[2017-11-23] MEDS: Sucralfate 1 gm/10 ml Oral Susp UD PO SCH ×2 (06:51→17:11)
--- NOTE | 2017-11-23 07:31 | PN ---
DATE: SUBJECTIVE: I saw Dione in the Intensive Care Unit, resting comfortably in bed. She slept well and in good spirits. She is on Benadryl, Carafate, potassium replacement, Lasix, magnesium replacement, Protonix and IV fluids. She is comfortable. No pain. Eating better. PHYSICAL EXAMINATION: VITAL SIGNS: She has a 98.4 temperature, 79 pulse, 22 respiratory rate, 97% O2 sat with a 98/60 blood pressure. HEENT: Head is atraumatic, normocephalic. Throat is moist. NECK: Supple. HEART: Regular rate. LUNGS: Clear to auscultation. ABDOMEN: Soft, nontender. Positive bowel sounds. EXTREMITIES: Have no edema. LABORATORY DATA: She has a 8.1 white count, 11.8 hemoglobin, 34.8 hematocrit, with 282 platelets. Sodium 133, potassium 3, I replaced potassium, BUN 12, creatinine 0.6, GFR is greater than 60, sugar is 83, calcium 7.6, phosphorus 1.9, magnesium 1.6, AST is 60, ALT is 37 and alk phos 110, total protein is 5.5. TSH is 0.16. ASSESSMENT AND PLAN: She is being seen by Cardiology, Lead Java Programmer and Gastrointestinal. She has severe anemia down to 3, gastric ulcer, left leg edema. She is also debilitated with physical therapy. She might need subacute rehab, waiting for physical therapy to tell me. Replaced potassium. She is here for severe anemia. Timothy Perla DO
[2017-11-23 08:02] LABS: HEMOGLOBIN 9.8 g/dL (12.0-16.0); MEAN CELL VOLUME 75.5 fl (80.0-105.0); MEAN CORPUSCULAR HEMOGLOBIN 25.5 pg (25.0-35.0); MEAN CORPUSCULAR HGB CONC 33.8 g/dl (31.0-37.0); MEAN PLATELET VOLUME 8.5 fl (7.0-11.0); RBC 3.84 10^6/uL (3.5-6.1); RED CELL DISTRIBUTION WIDTH 20.5 % (11.5-14.5); WHITE BLOOD COUNT 5.2 10^3/ul (4.5-11.0)
[2017-11-23 08:12] LABS: ALB/GLOB RATIO 1.2 (1.1-1.8); ALBUMIN 2.7 g/dL (3.0-4.8); ALT/SGPT 38 U/L (7-56); AST/SGOT 26 U/L (14-36); BLOOD UREA NITROGEN 8 mg/dL (7-21); CALCIUM 6.9 mg/dL (8.4-10.5); GFR AFRICAN-AMERICAN > 60; GFR NON-AFRICAN AMERICAN > 60
[2017-11-23 09:15] LABS: MAGNESIUM 2.4 mg/dL (1.7-2.2)
--- NOTE | 2017-11-23 15:09 | CARD ---
APPROVED REPORT EXAM: Two-dimensional and M-mode echocardiogram with Doppler and color Doppler. INDICATION Ischemic EKG 2D DIMENSIONS Left Atrium (2D)2.9 (1.6-4.0cm)IVSd0.8 (0.7-1.1cm) Aortic Root (2D)3.0 (2.0-3.7cm)LVDd3.5 (3.9-5.9cm) PWd0.9 (0.7-1.1cm)LVDs2.2 (2.5-4.0cm) FS (%) 37.9 %LVEF (%)69.0 (>50%) M-Mode DIMENSIONS Aortic Cusp Exc.1.70 (1.5-2.0cm) Aortic Valve AoV Peak Iorbtseu285.0cm/Jana Peak GR.7mmHgAI P 1/2 [id number] Mitral Valve MV E Rxjblizg21.5cm/sMV A Fszljvuz81.4cm/sE/A ratio0.8 TDI Lateral E' Peak V6.92cm/sMedial E' Peak V8.68cm/sE/Lateral E'8.0 E/Medial E'6.4 Pulmonary Valve PV Peak Gdwyfpgf344.0cm/sPV Peak Grad.5mmHg Tricuspid Valve TR Peak Qeydpfyr571tl/sRAP [id number] Peak Gr.59mmHg [id number] LEFT VENTRICLE The left ventricle is normal size. There is normal left ventricular wall thickness. The left ventricular function is normal. The left ventricular ejection fraction is within the normal range. There is normal LV segmental wall motion. Transmitral Doppler flow pattern is Grade I-abnormal relaxation pattern. RIGHT VENTRICLE The right ventricle is normal size. There is normal right ventricular wall thickness. The right ventricular systolic function is normal. ATRIA The left atrium size is normal. The right atrium is mildly dilated. AORTIC VALVE The aortic valve is mildly sclerotic. There is mild to moderate aortic regurgitation. There is no aortic valvular stenosis. MITRAL VALVE The mitral valve is mildly thickened. Mitral regurgitation is mild. TRICUSPID VALVE There is moderate tricuspid regurgitation. There is moderate to severe pulmonary hypertension. PULMONIC VALVE There is mild pulmonic valvular regurgitation. GREAT VESSELS The aortic root is normal in size. PERICARDIAL EFFUSION There is no pericardial effusion. <Conclusion> The left ventricle is normal size. There is normal left ventricular wall thickness. The left ventricular function is normal. The left ventricular ejection fraction is within the normal range. There is normal LV segmental wall motion. There is mild to moderate aortic regurgitation. Mitral regurgitation is mild. There is moderate tricuspid regurgitation. There is moderate to severe pulmonary hypertension.
--- NOTE | 2017-11-23 21:51 | PN ---
DATE: 11/23/2017 LOCATION: The patient in ICU 128, bed 4. This progress note being written behalf of Dr. Root who I am covering. REASON FOR CONSULTATION AND FOLLOWUP: EKG changes, severe anemia. On admission the patient's hemoglobin was 3.4 with hematocrit 12.3. SUBJECTIVE: The patient denies any chest pain, shortness of breath or palpitation. The patient lying flat in bed without any cardiac symptoms. PHYSICAL EXAMINATION VITAL SIGNS: Blood pressure 98/60, respirations 22, pulse 82 and the patient is afebrile. HEENT: Head is normocephalic. Eyes, pupils normal. Conjunctivae slightly pale. NECK: JVP low. Carotids equal. THORAX: AP diameter normal. LUNGS: Clear. CARDIOVASCULAR: S1 and S2. ABDOMEN: Soft and nontender. No organomegaly. EXTREMITIES: No clubbing. No cyanosis. LABORATORY DATA: WBC 5.2, hemoglobin 9.8, hematocrit 29.0 and platelet 238. On admission on 11/21/2017, the patient's hemoglobin was 3.4 and hematocrit was 12.3. On admission, PT was 15.3, INR 1.33 and PTT 29.6. The patient had echocardiogram today, which showed normal LV systolic function with ejection fraction of 69% and showed [id number] pulmonary hypertension with RVSP of 69 mmHg. Left ventricle size is normal. [id number] aortic regurgitation, mild mitral regurgitation, moderate tricuspid regurgitation. The patient had gastroendoscopy, which showed hiatal hernia, duodenal ulceration, gastritis, gastric polyp, esophageal ulceration. The patient had biopsy and EGD with cold polypectomy. DIAGNOSES: Abnormal EKG probably with very severely low hemoglobin and hematocrit. On admission hemoglobin 3.4 and hematocrit 12.3. Severe anemia, hypokalemia, hiatal hernia, duodenal ulceration, gastritis, esophageal ulceration, gastric polyp, polypectomy and esophago endoscopy with biopsy. PLAN: Replace potassium therapy and we will blood work in the morning and also we will repeat EKG in the morning to see whether those changes have improved with improvement of hemoglobin, hematocrit with multiple blood transfusion has been given and we will follow with you. Laney Mcnamara MD [facility] # [id number]
[2017-11-24] MEDS: Sodium Chloride 0.9% 1,000 ML IV SCH (05:22)
[2017-11-24] MEDS: Sucralfate 1 gm/10 ml Oral Susp UD PO SCH ×2 (05:22→15:01)
[2017-11-24] MEDS: Pantoprazole 40 mg EC Tab PO SCH ×2 (05:22→15:01)
[2017-11-24 08:18] LABS: ALB/GLOB RATIO 1.1 (1.1-1.8); ALBUMIN 2.8 g/dL (3.0-4.8); ALT/SGPT 35 U/L (7-56); AST/SGOT 22 U/L (14-36); BLOOD UREA NITROGEN 7 mg/dL (7-21); CALCIUM 7.7 mg/dL (8.4-10.5); GFR AFRICAN-AMERICAN > 60; GFR NON-AFRICAN AMERICAN > 60
[2017-11-24 08:24] LABS: HEMOGLOBIN 9.3 g/dL (12.0-16.0); MEAN CELL VOLUME 76.6 fl (80.0-105.0); MEAN CORPUSCULAR HEMOGLOBIN 25.3 pg (25.0-35.0); MEAN CORPUSCULAR HGB CONC 33.1 g/dl (31.0-37.0); MEAN PLATELET VOLUME 8.8 fl (7.0-11.0); RBC 3.67 10^6/uL (3.5-6.1); RED CELL DISTRIBUTION WIDTH 22.2 % (11.5-14.5); WHITE BLOOD COUNT 4.7 10^3/ul (4.5-11.0)
--- NOTE | 2017-11-24 09:06 | CP.PCM.PN ---
Subjective - Date & Time of Evaluation Date of Evaluation: 11/24/17 Time of Evaluation: 09:01 - Subjective Subjective: Patient seen and examined, resting in bed comfortably. No acute events overnight. She denies abdominal pain, nausea, vomiting, fever/chills, or rectal bleeding. She is tolerating PO diet without difficulty. Review of vitals from today are normal. 12 point review of systems performed, negative aside from mentioned above. Objective - Vital Signs/Intake and Output Vital Signs (last 24 hours): Temp Pulse Resp BP Pulse Ox 98 F 79 19 103/60 97 11/24/17 07:22 11/24/17 07:22 11/24/17 07:22 11/24/17 07:22 11/24/17 07:22 Intake and Output: 11/24/17 11/24/17 06:59 18:59 Intake Total 120 Output Total 700 Balance -580 - Medications Medications: Current Medications Sodium Chloride (Sodium Chloride 0.9%) 1,000 mls @ 60 mls/hr IV .[id number] [facility] Last Admin: 11/24/17 05:22 Dose: 60 mls/hr Potassium Chloride (Potassium Chloride 10 Meq/100 Ml) 10 meq in 100 mls @ 50 mls/hr IVPB ONCE ONE Stop: 11/24/17 12:29 Potassium Chloride (Potassium Chloride 10 Meq/100 Ml) 10 meq in 100 mls @ 50 mls/hr IVPB ONCE ONE Stop: 11/24/17 10:56 Pantoprazole Sodium (Protonix Ec Tab) 40 mg PO 0600,1600 [facility] Last Admin: 11/24/17 05:22 Dose: 40 mg Sucralfate (Carafate Oral Susp) 1 gm PO 0600,1600 [facility] Last Admin: 11/24/17 05:22 Dose: 1 gm - Labs Labs: 11/24/17 06:30 11/24/17 06:30 PT 15.3 SECONDS (9.4-12.5) H 11/21/17 17:40 INR 1.33 (0.93-1.08) H 11/21/17 17:40 APTT 29.6 Seconds (25.1-36.5) 11/21/17 17:40 - Constitutional Appears: Non-toxic, No Acute Distress - Head Exam Head Exam: NORMAL INSPECTION - Eye Exam Eye Exam: EOMI, Normal appearance - ENT Exam ENT Exam: Mucous Membranes Moist - Respiratory Exam Respiratory Exam: Clear to Ausculation Bilateral - Cardiovascular Exam Cardiovascular Exam: REGULAR RHYTHM, +S1, +S2 - GI/Abdominal Exam GI & Abdominal Exam: Soft, Normal Bowel Sounds Additional comments: non tender to palpation in four quadrants - Extremities Exam Extremities Exam: Normal Inspection - Skin Skin Exam: Dry, Intact, Normal Color, Warm Assessment and Plan - Assessment and Plan (Free Text) Assessment: Hypothyroidism Anxiety Microcytic anemia s/p EGD showing esophagitis, gastric ulcer, shallow duodenal ulcers, hiatal hernia Plan: - H/H stable, continue to monitor, no overt bleeding noted - Diet as tolerated - Continue with PPI and carafate regimen - Follow up biopsy results from EGD - Patient would benefit from colonoscopy evaluation to complete anemia workup, though adamantly refusing procedure. Suggest additional outpatient follow up. No further planned GI intervention, will sign off case. Please reconsult as necessary, thank you.
--- NOTE | 2017-11-24 12:41 | PN ---
DATE: SUBJECTIVE: I had seen her in Intensive Care Unit. She is in room 374. She is resting comfortably in bed. She is eating better, feeling better, status post transfusion. She is refusing a colonoscopy, which was recommended by GI. She does have an upper gastric ulcer. OBJECTIVE: VITAL SIGN: Today is 98 temperature, 79 pulse, 103/60 blood pressure, 19 respiratory rate, 97% and O2 sat that is the best vitals she has had. HEENT: Head is atraumatic, normocephalic. Better color on the face. She is feeding herself well, swallowing well. HEART: Regular rate. LUNGS: Clear to auscultation. ABDOMEN: Soft and nontender. Positive bowel sounds. No guarding, no rebound, no CVA tenderness. EXTREMITIES: No edema. She came in and her legs were swollen. No swelling anymore. She is currently on Carafate, potassium replacement, Protonix, and IV fluids. LABORATORY DATA: She has 4.7 white count, 9.3 hemoglobin, it was as high as 11.8, when she came in it was 3.4, if it drops into the 8, I will transfuse her again and have to re-discuss the colonoscopy before she is bleeding, hematocrit 20.1, and platelets are 276. She has 131 sodium, potassium is 2.9, I gave her two K-riders today, BUN is 7, creatinine is 0.5, GFR is greater than 60, sugar is 85, calcium is 7.7, total bilirubin is 1.2, AST is 22, ALT is 35, and alkaline phosphatase is 105. She is being seen by GI, Cardiology, and box icer. She had severe anemia down to 3. She had gastric ulcer with esophagitis. We will have to do colonoscopy to complete the workup, but she is refusing. We will check her labs tomorrow, get her out of bed to chair. I want her to go subacute rehab tomorrow if her hemoglobin remains okay. She has physical therapy, replace potassium. She was here for severe anemia, down to 3. Timothy Perla DO [facility] # [id number]
--- NOTE | 2017-11-24 18:04 | PN ---
DATE: 11/24/2017 LOCATION: The patient is in room 374, bed 1. This progress note being written on behalf of Dr. Root, who I am covering. REASON FOR CONSULTATION: Follow up EKG changes, severe anemia. On admission, hemoglobin of 3.4 and hematocrit of 12.3. SUBJECTIVE: The patient is lying comfortably in bed, without chest pain, shortness of breath or palpitation. PHYSICAL EXAMINATION: VITAL SIGNS: Blood pressure 103/60, respirations 19, pulse 79, temperature 98. HEENT: Head is normocephalic. Eyes, pupils normal. Conjunctivae slightly pale. NECK: JVP low. Carotids equal. THORAX: AP diameter normal. LUNGS: Clear. CARDIOVASCULAR: S1 and S2. ABDOMEN: Soft. No tenderness. No organomegaly. Bowel sounds are normal. EXTREMITIES: No clubbing. No cyanosis. LABORATORY DATA: WBC 4.7, hemoglobin 9.3, hematocrit 28.1 and platelet 276. Sodium 131, potassium 2.9. AST and ALT normal. Total protein 5.3 and albumin 2.8. The patient had echocardiogram, which showed normal LV systolic function, ejection fraction of 69%, [id number]-[id number] pulmonary hypertension with RVSP of 69 mmHg. LV size is normal. [id number]-lj-[id number] aortic regurg, mild mitral regurg, moderate tricuspid regurg. The patient already had gastro endoscopy. Repeat EKG done today shows still ST-T changes. DIAGNOSES: Abnormal EKG probably related to severe fall of hemoglobin and hematocrit, which on admission was hemoglobin 3.4 and hematocrit 12.3. ASSESSMENT AND PLAN: Anemia, hypokalemia, hiatal hernia, duodenal ulceration, gastritis, esophageal ulceration, gastric polyp, polypectomy and esophageal endoscopy with biopsy. Yilx-jz-irkzrwxn aortic regurgitation, mild mitral regurgitation, moderate tricuspid regurgitation,auhlicqf-uh-iohlrw pulmonary hypertension with right ventricular systolic pressure of 69 mmHg. The patient is on Carafate oral suspension 1 g p.o. b.i.d.. The patient got 2 IV bolus 10 mEq each potassium, Protonix 40 b.i.d. and normal saline IV fluid 60 mL an hour. We will give 2 more bolus of potassium 10 mEq IV today. Repeat labs includes CBC and complete metabolic panel tomorrow morning. We will follow with you. From tomorrow Dr. oRot will be seeing the patient. Laney Mcnamara MD [facility] # [id number]
--- NOTE | 2017-11-24 20:47 | CARD ---
APPROVED REPORT EKG Measurement Heart [id number] ID [id number] <Conclusion> Normal sinus rhythm ST & T wave abnormality, consider inferior and anterior ischemia Abnormal ECG
[2017-11-25] MEDS: Pantoprazole 40 mg EC Tab PO SCH (06:05)
[2017-11-25] MEDS: Sucralfate 1 gm/10 ml Oral Susp UD PO SCH (06:05)
[2017-11-25 06:49] VITALS: O2SAT 99
[2017-11-25 07:40] LABS: HEMOGLOBIN 10.5 g/dL (12.0-16.0); MEAN CELL VOLUME 76.9 fl (80.0-105.0); MEAN CORPUSCULAR HEMOGLOBIN 25.5 pg (25.0-35.0); MEAN CORPUSCULAR HGB CONC 33.2 g/dl (31.0-37.0); MEAN PLATELET VOLUME 8.9 fl (7.0-11.0); RBC 4.11 10^6/uL (3.5-6.1); RED CELL DISTRIBUTION WIDTH 23.3 % (11.5-14.5); WHITE BLOOD COUNT 7.4 10^3/ul (4.5-11.0)
[2017-11-25 07:45] LABS: ALB/GLOB RATIO 1.1 (1.1-1.8); ALBUMIN 2.8 g/dL (3.0-4.8); ALT/SGPT 34 U/L (7-56); AST/SGOT 23 U/L (14-36); BLOOD UREA NITROGEN 10 mg/dL (7-21); CALCIUM 7.8 mg/dL (8.4-10.5); GFR AFRICAN-AMERICAN > 60; GFR NON-AFRICAN AMERICAN > 60
--- NOTE | 2017-11-25 08:44 | PQF ANEMIA ---
This form is a permanent part of the medical record Clarification of your documentation is requested to better reflect the severity of illness and intensity of treatment of your patient. Indicators present Admitted w/ severe anemia requiring 4 UPRBC, Please document acute blood loss anemia POA [x] Anemia [x] Drop in H&H from []___ to []___ [] Hypotension [] GI Bleed [x] Transfusion(s) [] Acute bleed other sites [] Tachycardia [] Surgical Procedure Blood Loss (expected not a complication) Other:[] Location in the medical record that reflects the above clinical findings: [x] Admission labs Treatment Provided: [] Transfuse 4 UPRBC, EGD w/ biopsy, Gastric polypectomy PHYSICIAN'S RESPONSE acute blood loss anemia Based on your medical judgment of the clinical indicators outlined above, are you treating this patient for a known or suspected: [] Acute blood loss anemia [] Chronic blood loss anemia [] Acute on Chronic blood loss anemia [] Anemia due to malignancy [] Anemia due to chemotherapy or radiation therapy [] Anemia of Chronic Disease, please specify: [] [] Other, please indicate type of anemia []____ [] If Unable to Determine, please check the box, sign and date. Present On Admission (POA) Indicator: [] Present at the time of admission [] Not present at the time of admission [] Clinically Undetermined In responding to this query, please exercise your independent professional judgment. The fact that a question is asked does not imply that any particular answer is desired or expected. Thank you for your clarification on this documentation. If you have any questions please call:[ ][phone] * Thank you, [ ] Nava Decker RN CDS service counselor [facility]
--- NOTE | 2017-11-25 11:25 | PN ---
CARDIOLOGY FOLLOW UP DATE: 11/25/2017 SUBJECTIVE: The patient is comfortable in bed. No shortness of breath. No chest pain. PHYSICAL EXAMINATION: VITAL SIGNS: Blood pressure is 117/68, heart rate is in the 90s, normal sinus rhythm. NECK: Negative JVD. LUNGS: Without rales. HEART: With S1 and S2. EXTREMITIES: Without edema. LABORATORY DATA: BUN and creatinine are normal. Hemoglobin is 10.5. IMPRESSION: 1. Status post marked anemia. 2. Abnormal EKG. 3. Pulmonary hypertension. 4. Aortic insufficiency. PLAN: Given these findings, I have discussed with the patient about her abnormal EKG and a high probability for CAD. I have discussed the need for a stress test with the patient in detail. The patient is agreeable. We will set her up for an outpatient Lexiscan after the patient recovers and is discharged from the subacute rehab. Eduardo Root MD
[2017-11-25 12:28] VITALS: BP 130/75; PULSE 101; RESP 20; TEMP 97.8
--- NOTE | 2017-11-26 04:36 | DS ---
HOSPITAL COURSE: I saw her resting comfortably in bed. She slept well. She is doing well. She is currently on Carafate, Protonix, and IV fluids. She came in with severe anemia down to 3, transfused, up above 10. She is very weak and she is recommended for subacute rehab and physical therapy. PHYSICAL EXAMINATION: VITAL SIGNS: She has 98.1 temperature, 100 pulse, 137/83 blood pressure, 20 respiratory rate, and 95% O2 sat. GENERAL: She is alert and comfortable, feeling better. No pain. HEENT: Head is atraumatic, normocephalic. HEART: Regular rate. LUNGS: Clear to auscultation. ABDOMEN: Soft. EXTREMITIES: No edema. She completely refuses the colonoscopy. She did have an upper, which showed a gastric ulcer. She did have leg edema when she came in, it is better now. She is anemic and low potassium, which was re-corrected. LABORATORY DATA: White count is 4.7, hemoglobin went up to as high as 11, it is down to 9.3, we checked her labs this morning, hematocrit is 28.1, and platelets are 276. Sodium 131, potassium is 2.9, we will see what the potassium is this morning after we replace it, before she goes to , I am hoping for [facility], where she had been before, BUN 7, creatinine 0.5, GFR is greater than 60, sugar is 85, calcium is 7.7, total bilirubin is 1.2, AST is 22, ALT is 35, and alkaline phosphatase is 105. ASSESSMENT AND PLAN: I also talked to psychiatric social worker this morning. I am hoping for a discharge today this afternoon and I will see her at [facility]. Timothy Perla DO MTDD
== END 2017-11-25 16:26 | DRG 378 ==
LOC: ED 16:51 → ERH 20:47 → ICU 22:45 → 3RSO 11-23 22:37
PROVIDERS: ADMIT Family Medicine; ATTEND Family Medicine
PROC: 30233N1 Transfusion of Nonautologous Red Blood Cells into Peripheral Vein, Percutaneous Approach (ICD-10-PCS; 2017-11-21)
PROC: 0DB58ZX Excision of Esophagus, Via Natural or Artificial Opening Endoscopic, Diagnostic (ICD-10-PCS; 2017-11-22)
PROC: 0DB68ZX Excision of Stomach, Via Natural or Artificial Opening Endoscopic, Diagnostic (ICD-10-PCS; principal; 2017-11-22 09:00)
PROC: 0DB68ZZ Excision of Stomach, Via Natural or Artificial Opening Endoscopic (ICD-10-PCS; 2017-11-22 09:00)
DX: K25.4 Chronic or unspecified gastric ulcer with hemorrhage (principal); D62 Acute posthemorrhagic anemia; I27.20 Pulmonary hypertension, unspecified; E87.1 Hypo-osmolality and hyponatremia; K22.10 Ulcer of esophagus without bleeding; I08.3 Combined rheumatic disorders of mitral, aortic and tricuspid valves; K26.9 Duodenal ulcer, unspecified as acute or chronic, without hemorrhage or perforation; K21.0 Gastro-esophageal reflux disease with esophagitis; K31.7 Polyp of stomach and duodenum; E03.9 Hypothyroidism, unspecified; E87.6 Hypokalemia; F41.9 Anxiety disorder, unspecified; K44.9 Diaphragmatic hernia without obstruction or gangrene; K29.50 Unspecified chronic gastritis without bleeding; Z91.19 Patient's noncompliance with other medical treatment and regimen